=== PATIENT | male | born 1990 | race Caucasian/White ===

== ENCOUNTER 2019-05-17 15:40 | Emergency (ER) | payer MEDICAID ==
[~2019-05-17] VITALS: Ht 167.6 cm; Wt 70.3 kg
[2019-05-17 15:51] VITALS: BP_SYST 133
--- NOTE | 2019-05-17 15:55 | NUR ---
oPatient to ER bed 08 to gown for evaluation. Side rails up. Report given to GRECIA Riddle
--- NOTE | 2019-05-17 15:57 | NUR ---
Pt AAOx4 ambulated to ED from home for evaluation of abnormal potassium levels drawn x 3 days ago per PCP. Pt states he performes peritoneal dialysis daily. Denies complaints at this time. No otheri njuries/complaints per pt/noted. Will continue to monitor.
--- NOTE | 2019-05-17 16:15 | NUR ---
ER Dr. Matias at bedside examining patient.
[2019-05-17 16:25] LABS: BASOPHILS # (AUTO) 0.1 K/uL (0.0-0.2); BASOPHILS % (AUTO) 1.2 % (0.0-2.0); EOSINOPHILS # (AUTO) 0.1 K/uL (0.0-0.4); EOSINOPHILS % (AUTO) 1.6 % (0.0-4.0); HEMATOCRIT 37.8 % (36-54); HEMOGLOBIN 12.9 g/dL (14.0-18.0); LYMPHOCYTES # (AUTO) 2.3 K/uL (1.0-5.5); LYMPHOCYTES % (AUTO) 26.3 % (20.5-51.5); MEAN CORPUSCULAR HEMOGLOBIN 31 pg (27-31); MEAN CORPUSCULAR HGB CONC 34 % (32-36); MEAN CORPUSCULAR VOLUME 91 fL (79.0-98.0); MONOCYTES # (AUTO) 0.5 K/uL (0.0-1.0); MONOCYTES % (AUTO) 5.5 % (1.7-9.3); NEUTROPHILS # (AUTO) 5.7 K/uL (1.8-7.7); NEUTROPHILS % (AUTO) 65.4 % (40.0-70.0); PLATELET COUNT (AUTO) 276 K/uL (130-430); RED BLOOD CELL COUNT(AUTO) 4.14 MIL/uL (4.2-6.2); RED CELL DISTRIBUTION WIDTH 14.1 % (9.0-15.0); WHITE BLOOD COUNT (AUTO) 8.7 K/uL (4.8-10.8)
[2019-05-17 16:52] LABS: CREATININE 5.03 mg/dL (0.55-1.30); POTASSIUM 5.4 mmol/L (3.5-5.1)
[2019-05-17 16:59] LABS: TOTAL BILIRUBIN 0.3 mg/dL (0.0-1.0)
[2019-05-17] MEDS ORDERED: SODIUM ZIRCONIUM CYCLOSILICATE 10 GM POWD.PACK PO ONE (17:15)
--- NOTE | 2019-05-17 17:34 | NUR ---
Patient given written and verbal discharge instructions and verbalizes understanding. ER MD Matias discussed with patient the results and treatment provided. Patient in stable condition. ID arm band removed. No Rx given. Patient educated on pain management and to follow up with PMD. Pain Scale 0. Opportunity for questions provided and answered. Medication side effect fact sheet provided.
[2019-05-17 17:35] VITALS: BP_SYST 129
== END 2019-05-17 17:34 | disposition home or self-care (01) ==
LOC: SED 15:40
DX: E87.5 Hyperkalemia (principal); E11.22 Type 2 diabetes mellitus with diabetic chronic kidney disease; I12.9 Hypertensive chronic kidney disease with stage 1 through stage 4 chronic kidney disease, or unspecified chronic kidney disease; N18.9 Chronic kidney disease, unspecified; Z88.2 Allergy status to sulfonamides
CPT/HCPCS: 36415; 80053; 85025; 93005; 99284